=== PATIENT | male | born 1980 | race African-American/Black ===

== ENCOUNTER 2022-12-24 03:57 | Day surgery (SDC) | payer OTHER ==
[2022-12-20 14:22] VITALS: BMI 21.8
[2022-12-24] MEDS ORDERED: MIDAZOLAM HCL 2 MG/2 ML SINGLE DOSE VIAL ONE (13:45)
[2022-12-24] MEDS ORDERED: KETOROLAC TROMETHAMINE 30 MG/1 ML VIAL ONE (14:15)
[2022-12-24] MEDS ORDERED: ONDANSETRON 4 MG/2 ML VIAL ONE (14:15)
[2022-12-24 14:53] VITALS: RESP 16
[2022-12-24 16:13] VITALS: BP 106/55; PULSE 49; TEMP 97.5
== END 2022-12-24 16:45 | disposition home or self-care (01) ==
LOC: JASU-SURG 03:57
PROVIDERS: ATTEND Urology
PROC: 0TF3XZZ Fragmentation in Right Kidney Pelvis, External Approach (ICD-10-PCS; principal; 2022-12-24 13:00)
DX: N20.0 Calculus of kidney (principal)